=== PATIENT | female | born 1935 | race Caucasian/White ===

== ENCOUNTER 2019-02-10 20:06 | Inpatient (IN) | payer MEDICARE ==
[~2019-02-10] VITALS: Ht 172.7 cm; Wt 81.4 kg
[~2019-02-10 20:06] MED LIST: 'TENORMIN50 MG PO; ACTOS30 MG PO; ALBUTEROL2.5 MG/0.5 INH; AMLODIPINE10 MG PO; ANASTROZOLE1 M1 PO; ARIMIDEX1 MG PO; ASPIRIN325 MG PO; CARAFATE1 G1 PO; GLUCOTROL10 MG PO; HYDR25T; JANUVIA PO; LISINOPRIL40 MG PO; LISINOPRIL5 MG PO; METFORMIN XR500 MG PO; NICODERM C14 MG/24 H TD; NORVASC5 MG PO; NOVOLOG FLEX100 U/ML; OMEPRAZOLE20 MG PO; ONGLYZA2.5 MG PO; PRILOSEC20 MG PO; PRILOSEC40 MG PO; ROCEPHIN1 GM IV; SOLU-MEDROL40 MG IV; SYNTHROID0.15 MG; SYNTHROID0.15 MG PO; SYNTHROID0.175 MG PO; Synthroid,Lev150 MCG PO; TENORMIN25 MG PO; VITAMIN D2000 IU PO; ZETIA10 MG PO
[2019-02-10 20:07] VITALS: BP 169/59
[2019-02-10 20:48] LABS: BASO % 0.4 % (0.0-1.0); EOS # 0.1 10*3/uL (0.0-0.4); HEMATOCRIT 42.2 % (37.0-47.0); HEMOGLOBIN 13.9 g/dl (12.0-16.0); LYMPH # 1.9 10*3/uL (1.3-4.4); LYMPH % 17.1 % (27.0-41.0); MEAN CELL VOLUME 94.6 fl (81.0-99.0); MEAN CORPUSCULAR HGB 31.2 pg (27.0-31.0); MEAN CORPUSCULAR HGB CONC 32.9 g/dl (33.0-37.0); MEAN PLATELET VOLUME 10.9 fl (9.6-12.3); MONO # 0.8 10*3/uL (0.1-1.0); MONO % 7.2 % (3.0-9.0); PLATELET COUNT AUTOMATED 235 10*3/uL (130-400); RED BLOOD COUNT 4.46 10*6/uL (4.10-5.10); RED CELL DISTRI WIDTH 12.5 % (0-14.5); WHITE BLOOD COUNT 10.8 10*3/uL (4.8-10.8)
[2019-02-10 20:58] LABS: ACT PARTIAL THROMBO TIME 27.1 SECONDS (20.0-32.1); INTERNATIONAL NORM RATIO 0.9 (2.0-3.5)
[2019-02-10 21:04] LABS: ALBUMIN 3.4 gm/dl (3.1-4.5); ALKALINE PHOSPHATASE 105 U/L (45-117); BUN 32 mg/dl (7-24); CHLORIDE 108 mmol/L (98-107); CREATININE 0.91 mg/dL (0.55-1.02); LIPASE 85 U/L (73-393); POTASSIUM 3.9 mmol/L (3.5-5.1); SGOT/AST 17 IU/L (3-35); SGPT/ALT 15 U/L (12-78); SODIUM 139 mmol/L (136-145); TOTAL PROTEIN 7.6 gm/dL (6.4-8.2)
[2019-02-10 21:46] VITALS: BP 167/79
[2019-02-11] VITALS (36 sets, daily range): BP systolic 110–180; BP diastolic 43–97
--- NOTE | 2019-02-11 02:10 | NUR ---
TROPONIN 0.423 RESULT CALLED TO
--- NOTE | 2019-02-11 05:30 | NUR ---
DR. CARR NOTIFIED OF CONSULT VIA ANSWERING SERVICE
[2019-02-11 05:34] LABS: BASO % 0.3 % (0.0-1.0); EOS # 0.1 10*3/uL (0.0-0.4); EOS % 1.3 % (1.0-4.0); HEMATOCRIT 41.2 % (37.0-47.0); HEMOGLOBIN 13.6 g/dl (12.0-16.0); LYMPH # 2.2 10*3/uL (1.3-4.4); LYMPH % 28.4 % (27.0-41.0); MEAN CORPUSCULAR HGB 30.7 pg (27.0-31.0); MONO # 0.7 10*3/uL (0.1-1.0); MONO % 8.9 % (3.0-9.0); NEUT # 4.7 10*3/uL (2.3-7.9); NEUT % 60.8 % (47.0-73.0); PLATELET COUNT AUTOMATED 212 10*3/uL (130-400); RED BLOOD COUNT 4.43 10*6/uL (4.10-5.10); RED CELL DISTRI WIDTH 12.5 % (0-14.5); WHITE BLOOD COUNT 7.6 10*3/uL (4.8-10.8)
[2019-02-11 05:51] LABS: BUN 26 mg/dl (7-24); CHLORIDE 109 mmol/L (98-107); CHOLESTEROL 146 mg/dL (<200); CREATININE 0.84 mg/dL (0.55-1.02); FREE T4 1.23 ng/dl (0.76-1.46); HDL CHOLESTEROL 51 mg/dl (40-60); LDL CHOLESTEROL 72 mg/dL (9-159); PHOSPHOROUS 3.7 mg/dL (2.5-4.9); POTASSIUM 3.7 mmol/L (3.5-5.1); SODIUM 142 mmol/L (136-145); TRIGLYCERIDES 116 mg/dl (<150); VLDL CHOLESTEROL 23 mg/dL (6-40)
--- NOTE | 2019-02-11 05:54 | NUR ---
TROPONIN 1.370 DR.KINNEAR ALONSO
--- NOTE | 2019-02-11 07:10 | NUR ---
REPORT FROM MUKESH LU AT THIS TIME.
[2019-02-11 07:44] LABS: BILIRUBIN NEGATIVE (NEGATIVE); BLOOD TRACE-INTACT (NEGATIVE); CLARITY CLOUDY (CLEAR); COLOR YELLOW (YELLOW); GLUCOSE NEGATIVE (NEGATIVE); KETONE NEGATIVE (NEGATIVE); LEUKO ESTERASE TRACE (NEGATIVE); NITRITE POSITIVE (NEGATIVE); PH 5.5 (5.0-9.0); SPECIFIC GRAVITY 1.025 (1.005-1.030); UROBILINOGEN 0.2 E.U./dl (0.2-1.0)
--- NOTE | 2019-02-11 07:45 | NUR ---
PATIENT REPORT FROM MUKESH LU THIS MORNING. PATIENT NOTED BRADYCARDIC ON THE MONITOR. PATIENT DID RECEIVE HER METOPROLOL AND LISINOPRIL AT AROUND 0530. PATIENT HR HAS DECREASED FROM 70'S-40'S. PATIENT CURRENTLY ON NITRO AND HEPARIN DRIP AND REPEAT EKG IS SCHEDULED FOR 0830. THIS NURSE COMPLETED THE 0830 EKG AT THIS TIME AND PATIENT RESIDENT HAS BEEN NOTIFIED OF EKG SO THAT THEY CAN COME LOOK AT IT. DR SOTOMAYOR IS DOCTOR TAKING CARE OF PATIENT AND HIS RESIDENT CAME TO ER AND MADE COPIES OF PREVIOUS EKG AND THIS EKG AND HAS TAKEN IT WITH HIM. PATIENT IN NO DITRESS. DENIES CHEST PAIN. ASYMPTOMATIC AT THIS TIME. RESTING IN BED LAYING DOWN. WILL CONTINUE TO MONITOR. STILL AWAITING FOR BED ASSIGMENT UPSTAIRS.
[2019-02-11 07:55] LABS: BACTERIA 4+; CALCIUM OXALATE CRYSTALS 2+
[2019-02-11 08:16] LABS: VITAMIN D, 25-HYDROXY 95.1 ng/mL (30-100)
--- NOTE | 2019-02-11 08:39 | NUR ---
PATIENT NEICE NUMBER IS [phone].
[2019-02-11 08:57] LABS: ACT PARTIAL THROMBO TIME 58.4 SECONDS (20.0-32.1)
--- NOTE | 2019-02-11 09:10 | NUR ---
NOTFIED BY LAB PTS TROPONIN IS 2.890 DR KUMAR AND NURSE HERMAN RN NOTIFIED.
--- NOTE | 2019-02-11 09:15 | NUR ---
PATIENT TROPONIN CALLED AT THIS TIME. CRITICAL RESULT 2.890. RESIDENT DR KEVIN NOTIFIED AT THIS TIME.
--- NOTE | 2019-02-11 09:21 | NUR ---
SPOKE TO DR KEVIN AND HE STATES TO DO ANOTHER EKG AND THEN CONSULT HYDRAULIC DREDGE OPERATOR THAT IS ON TODAY DR CARR OR DR ORTIZ.
--- NOTE | 2019-02-11 09:22 | NUR ---
SPOKE TO CHASSIS ENGINEER TO SEE WHO MILL WASHER IS THAT IS ON. STATES DR ORTIZ. HE WAS NOT IN OFFICE AND WAS GOING TO LEAVE A MESSAGE WHEN DR SOTOMAYOR WAS HERE IN THE ER. DR SOTOMAYOR HAS BEEN MADE AWARE OF THIS NURSE BEING TOLD THAT THE PATIENT NEEDED ANOTHER EKG STAT AND THAT THE MILL WASHER NEEDED TO BE NOTIFIED. STATES TO HANG UP WITH MILL WASHER AND HE WOULD LOOK AT EKGS. DR SOTOMAYOR NOTIFIED OF ELEVATED TROPONINS AND THE NEWEST EKG. PATIENT IS STILL ASYMPTOMATIC AT THIS TIME.
--- NOTE | 2019-02-11 09:45 | NUR ---
DR SOTOMAYOR IN ROOM WITH PATIENT AT THIS TIME.
--- NOTE | 2019-02-11 09:55 | NUR ---
DR SOTOMAYOR SPEAKING TO FAMILY MEMBER AT THIS TIME IN [facility].
--- NOTE | 2019-02-11 10:29 | NUR ---
CONTACTED RESDIENT ORDER MAKE UP CLERK FOR DR SOTOMAYOR AND ASKED IF PATIENT STILL IS GETTING A ROOM OR IF SHE IS POSSIBLY BEING TRANSFERRED. STATES THEY WILL BE DONE TO SPEAK TO HER.
--- NOTE | 2019-02-11 11:06 | NUR ---
DR ORTIZ IN ROOM WITH PATIENT AT THIS TIME SPEAKING TO PATIENT AND FAMILY.
--- NOTE | 2019-02-11 12:53 | NUR ---
PATIENT TROPONIN IS CALLED 4.320 AT 1240. THIS TAKEN BY ANOTHER NURSE. CALLED TO NOTIFY DR SOTOMAYOR WITH RESULTS AND DR SOTOMAYOR STATES "YOU SHOULD BE CALLING DR ORTIZ WITH THIS." CALLED DR ORTIZ AND GOT THE ANSWERING SERVICE. STATES THAT THEY WILL PAGE DR ORTIZ.
--- NOTE | 2019-02-11 13:12 | NUR ---
DR ORTIZ RETURNED CALL STATES THAT HE IS NOT WORRIED ABOUT THE ELEVATED TROPONIN AT THIS TIME. STATES TO WATCH FOR EKG CHANGES OR CHEST PAIN.
--- NOTE | 2019-02-11 13:48 | NUR ---
PATIENT TAKEN TO [facility] AT THIS TIME BY THIS NURSE. NO CHANGE IN PATIENT STATUS AT THIS TIME. BEDSIDE REPORT GIVEN TO MATT LU.
[2019-02-11] MEDS ORDERED: GLIPIZIDE5 MG PO (14:48)
--- NOTE | 2019-02-11 14:56 | NUR ---
A 84, admitted to [facility]U, under the services of JOHN PAUL Nathan DO with a diagnosis of TIA. Chief complaint is MEMORY LOSS, CONFUSION. Patient arrived via bed from ER. Monitor applied. Initial assessment completed. Vital signs taken and recorded. JOHN PAUL NATHAN DO notified of admission to the unit. Orders received. See assessment for past medical history, medications and allergies. Patient and/or family oriented to unit. [facility] visitation policy reviewed. Clothing/patient valuable form completed. MATT CARL
--- NOTE | 2019-02-11 16:03 | NUR ---
DR ORTIZ NOTIFIED OF 7TH TROPONIN OF 4.99. I REVIEWED PT'S LABS, VITAL SIGNS AND HOME MEDS/CURRENT MEDS WITH HIM. I INFORMED HIM OF HER FEELING LIKE A "GAS BUBBLE" IN HER CHEST AND PERSISTENT HYPERTENSION. ORDERS RECEIVED.
--- NOTE | 2019-02-11 16:39 | NUR ---
DOSE OF NORVASC AND LISINOPRIL GIVEN TO PT PER ORDERS. PT IS AWARE SHE IS GOING [facility] AM FOR HEART CATH.
--- NOTE | 2019-02-11 22:00 | NUR ---
patient up to bedside commode, steady on feet, denies dizziness, and displays no signs of weakness at this time. no signs or symptoms of distress, patient does c/o some discomfort in chest but states that it decreases as she gets back into bed. rn will monitor
[2019-02-12] VITALS (24 sets, daily range): BP systolic 136–174; BP diastolic 43–86
--- NOTE | 2019-02-12 02:35 | NUR ---
Patient resting quietly with no c/o discomfort. Respirations easy and regular. Vital signs stable. No signs or symptoms of distress. IV heparin and IV nitro infusing per drs orders. JONAS OBRIEN
[2019-02-12 06:58] LABS: ALBUMIN 3.1 gm/dl (3.1-4.5); ALKALINE PHOSPHATASE 81 U/L (45-117); BUN 35 mg/dl (7-24); CHLORIDE 108 mmol/L (98-107); CREATININE 0.98 mg/dL (0.55-1.02); POTASSIUM 3.9 mmol/L (3.5-5.1); SGOT/AST 22 IU/L (3-35); SGPT/ALT 16 U/L (12-78); SODIUM 141 mmol/L (136-145); TOTAL PROTEIN 6.4 gm/dL (6.4-8.2)
--- NOTE | 2019-02-12 09:00 | NUR ---
RESTING IN BED. DENIES ANY COMPLAINTS. HEPARIN GTT INFUSING AT 12UNITS/KG/HR (10CC/HR) AND NITRO INFUSING AT 30 KACY'S (9CC/HR) VIA LEFT ARM. LUNGS CLEAR BILATERALLY. PULSE OX 97% ON 2L NASAL CANNULA. NO PERIPHERAL EDEMA NOTED. COMPLETE BED AND BATH DONE.
[2019-02-12] MEDS ORDERED: METOPROLOL SUCC25 M2 PO (14:50)
[2019-02-12] MEDS ORDERED: CEFTRIAXONE1 GM IJ (14:50)
[2019-02-12] MEDS ORDERED: AMLODIPINE BESYL5 MG PO (14:50)
[2019-02-12] MEDS ORDERED: GOOD SENSE ASP325 MG PO (14:50)
[2019-02-12] MEDS ORDERED: ATORVASTATIN CA80 M1 PO (14:50)
[2019-02-13] VITALS (12 sets, daily range): BP systolic 140–183; BP diastolic 46–76
--- NOTE | 2019-02-13 07:00 | NUR ---
PT'S BEDSIDE GLUCOSE 155. COVERAGE HELD DUE TO PT NPO FOR HEART CATH TODAY.
--- NOTE | 2019-02-13 08:30 | NUR ---
PT TO CAROTID DOPPLER VIA WC.
--- NOTE | 2019-02-13 08:38 | NUR ---
OFF THE FLOOR FOR OTHER TESTING. WILL TRY FOR ECHO AGAIN LATER.
--- NOTE | 2019-02-13 12:52 | NUR ---
VENT CHANGES MADE BY RESP. THERAPIST.
--- NOTE | 2019-02-13 14:15 | NUR ---
Patient transported to [facility] via [facility] ambulance. Nitro infusing via pump, report given, paperwork given to EMT. All patient belongings retrieved and sent with patient. Patient stable @ time of transfer.
== END 2019-02-13 15:26 | disposition short-term general hospital (02) | DRG 281 ==
LOC: ED 20:06 → EDHOLD 23:05 → ICCU 23:05
PROVIDERS: Emergency Medicine Emergency Medical Services; Internal Medicine; ADMIT Emergency Medicine
DX: I21.4 Non-ST elevation (NSTEMI) myocardial infarction (principal); G45.9 Transient cerebral ischemic attack, unspecified; N39.0 Urinary tract infection, site not specified; D72.9 Disorder of white blood cells, unspecified; D72.810 Lymphocytopenia; E87.8 Other disorders of electrolyte and fluid balance, not elsewhere classified; I25.10 Atherosclerotic heart disease of native coronary artery without angina pectoris; E03.9 Hypothyroidism, unspecified; I10 Essential (primary) hypertension; E78.5 Hyperlipidemia, unspecified; E55.9 Vitamin D deficiency, unspecified; R06.82 Tachypnea, not elsewhere classified; E11.65 Type 2 diabetes mellitus with hyperglycemia; E11.51 Type 2 diabetes mellitus with diabetic peripheral angiopathy without gangrene; F41.9 Anxiety disorder, unspecified; F32.9 Major depressive disorder, single episode, unspecified; F17.211 Nicotine dependence, cigarettes, in remission; R00.1 Bradycardia, unspecified; Z71.6 Tobacco abuse counseling; Z95.5 Presence of coronary angioplasty implant and graft; Z88.2 Allergy status to sulfonamides; Z88.8 Allergy status to other drugs, medicaments and biological substances; Z86.73 Personal history of transient ischemic attack (TIA), and cerebral infarction without residual deficits; Z90.710 Acquired absence of both cervix and uterus; Z90.10 Acquired absence of unspecified breast and nipple; Z98.49 Cataract extraction status, unspecified eye; Z82.3 Family history of stroke; Z82.49 Family history of ischemic heart disease and other diseases of the circulatory system; Z85.3 Personal history of malignant neoplasm of breast; Z85.42 Personal history of malignant neoplasm of other parts of uterus; Z79.899 Other long term (current) drug therapy